=== PATIENT | female | born 1960 | race African-American/Black ===

== ENCOUNTER → 2016-09-04 | Outpatient (CLI) | payer OTHER ==
[~2016-09-04] MED LIST: NO MEDICATIONS
--- NOTE | ~2016-09-04 | NM22 ---
[facility] A Service of [facility] & [facility] RADIOLOGY TEXT RESULTS PATIENT: LATASHA COLON LOCATION: [facility] : 62 UNIT #: [id number] AGE: [address]: KYARA ANDERSON APRN SEX: F ORDER DR: [id number] [facility] [address] [place], [place] [address] [id number] O MR#: [id number] Acc #: [id number] NAME: LATASHA COLON : 1960 SEX: F STUDY DATE/TIME: 09/04/2016 11:37 UNIT: [facility] ROOM: STUDY DESCRIPTION: NM Hepatobiliary W GB Pharm Attending Physician: Kyara Anderson Aprn Referring Physician: Kyara Anderson Aprn Ordering Physician: Kyara Anderson Aprn Primary Care Physician: No Primary Care Physician MEDICAL IMAGING REPORT This report is preliminary unless electronic signature is present EXAM HIDA scan with Kinevac CCK, 09/04/2016. HISTORY Epigastric abdominal pain radiating to the back. Patient's stomach always feels full, intermittent right upper quadrant pain, acid reflux, gaseous abdomen with belching, constipation and nausea. Symptoms began 2 weeks ago. FINDINGS The patient received an intravenous injection of 5.92 mCi of technetium 99m tagged Choletec for hepatobiliary imaging. 1 hour following the injection of the radiopharmaceutical, the patient received an intravenous injection of 1.6 mcg of Kinevac. There is homogeneous distribution of the radiotracer throughout the liver. Gallbladder activity was seen by 15 minutes postinjection of the radiopharmaceutical. Following Kinevac injection, the gallbladder ejection fraction was 77.3% (normal is greater than 30%). IMPRESSION Normal HIDA scan with gallbladder ejection fraction of 77.3%. Dictated by... Gordo Martinez M.D. THIS IS AN ELECTRONICALLY VERIFIED REPORT Gordo Martinez M.D. at 09/05/2016 7:54 AM JOSE MARTIN/geovanna TD: 09/04/2016 15:02 JOB #: [id number] [facility] A Service of [facility] & [facility] RADIOLOGY TEXT RESULTS PATIENT: LAT[facility] COL[id number] [birth year] UNIT #: [id number] AGE: [address]: KYARA ANDERSON [employer] SEX: F ORDER DR: MEDICAL IMAGING REPORT Page 1 of 1 COPY
== END | disposition home or self-care (01) ==
LOC: CNUC 11:00
DX: R10.11 Right upper quadrant pain (principal); R11.0 Nausea
CPT/HCPCS: 78227; A9537; J2805